=== PATIENT | male | born 1995 | race Caucasian/White ===

== ENCOUNTER 2020-08-28 13:37 | Emergency (ER) | payer OTHER ==
[~2020-08-28] VITALS: Ht 170.2 cm; Wt 76.2 kg
--- NOTE | 2020-08-28 13:37 | NUR ---
PT BIB [facility] C/O ABDOMINAL DISTENSION/PAIN X 3 DAYS AND VOMITING BLOOD LAST NIGHT. PT IS AAOX4, NOT IN RESPIRATORY DISTRESS, HOOKED TO [employer], KEPT RESTED AND COMFORTABLE. WILL CONTINUE TO MONITOR.
--- NOTE | 2020-08-28 13:44 | NUR ---
CALLED IN ED WAITING ROOM. NO RESPONSE.
--- NOTE | 2020-08-28 14:27 | NUR ---
SEEN AND EXAMINED BY .
[2020-08-28] MEDS ORDERED: KETOROLAC TROMETHAMINE INJ 30 MG/ML VIAL IV ONE (14:30)
[2020-08-28] MEDS ORDERED: ONDANSETRON HCL/PF 4 MG/2 ML VIAL IVP ONE (14:30)
[2020-08-28] MEDS ORDERED: IV NS 0.9% 1,000 ML BAG IV ONE (14:30)
[2020-08-28] MEDS ORDERED: KETOROLAC TROMETHAMINE 15 MG/ML VIAL ONE (14:31)
[2020-08-28] MEDS ORDERED: ONDANSETRON HCL/PF 4 MG/2 ML VIAL ONE (14:31)
--- NOTE | 2020-08-28 14:40 | NUR ---
IV LINE ESTABLISHED BLOOD DRAWN AND SENT TO LAB.
[2020-08-28 14:46] LABS: BASOPHILS % (AUTO) 0.5 % (0.0-2.0); HEMATOCRIT 42 % (39-51); HEMOGLOBIN 13.8 g/dL (13.5-17.5); LYMPHOCYTES # (AUTO) 1.7 K/uL (0.8-4.8); LYMPHOCYTES % (AUTO) 26.4 % (20.0-44.0); MEAN CORPUSCULAR HGB CONC 33 g/dl (31.0-36.0); MEAN CORPUSCULAR VOLUME 89 fL (80-96); MONOCYTES # (AUTO) 0.6 K/uL (0.1-1.30); MONOCYTES % (AUTO) 8.4 % (2.0-12.0); NEUTROPHILS # (AUTO) 4.2 K/uL (1.8-8.9); NEUTROPHILS % (AUTO) 62.7 % (43.0-81.0); PLATELET COUNT (AUTO) 132 K/uL (150-450); RED BLOOD CELL COUNT(AUTO) 4.76 MIL/uL (4.5-6.0); WHITE BLOOD COUNT (AUTO) 6.6 K/uL (4.3-11.0)
[2020-08-28 14:56] LABS: CALCIUM, SERUM 8.8 mg/dL (8.5-10.1); CREATININE 0.8 mg/dL (0.6-1.3); POTASSIUM 3.6 mmol/L (3.5-5.1)
[2020-08-28 15:03] LABS: ALBUMIN 3.8 g/dL (3.4-5.0); BILIRUBIN,DIRECT 0.1 mg/dL (0.0-0.2); BILIRUBIN,TOTAL 0.3 mg/dL (0.2-1.0); TOTAL PROTEIN, SERUM 7.2 g/dL (6.4-8.2)
[2020-08-28] MEDS ORDERED: IV NS 0.9% 250 ML IV ONE (15:11)
[2020-08-28] MEDS ORDERED: IOHEXOL-300 100 ML VIAL IV ONE (15:11)
[2020-08-28] MEDS ORDERED: MORPHINE SULFATE INJ 4 MG/ML DISP.SYRIN ONE (15:43)
[2020-08-28] MEDS ORDERED: MORPHINE SULFATE INJ 10 MG/ML DISP.SYRIN IV ONE (16:00)
[2020-08-28] MEDS ORDERED: AZIT1PAC9 PO (16:52)
--- NOTE | 2020-08-28 17:15 | NUR ---
IV removed. Catheter intact and site benign. Pressure and 4x4 applied to site. No bleeding noted.Patient discharged to home in stable condition. Written and verbal after care instructions given. Patient verbalizes understanding of instruction.
[2020-08-28 17:16] VITALS: BP 110/55
== END 2020-08-28 17:16 | disposition home or self-care (01) ==
LOC: ER 13:42
DX: R10.84 Generalized abdominal pain (principal); R14.0 Abdominal distension (gaseous); R16.2 Hepatomegaly with splenomegaly, not elsewhere classified; J18.9 Pneumonia, unspecified organism
CPT/HCPCS: 71045; 74177; 80048; 80076; 83690; 85025; 85730; 96361; 96374; 96375; 99285; J1885; J2270; J2405; J7030; J7050; Q9967

== ENCOUNTER 2020-10-14 15:22 | Emergency (ER) | payer OTHER ==
[~2020-10-14] VITALS: Ht 165.1 cm; Wt 72.6 kg
[~2020-10-14 15:22] MED LIST: AZIT1PAC9 PO
--- NOTE | 2020-10-14 15:45 | NUR ---
The patient bibs for c/o sharp abdominal pain right side going to back. Rates pain 10/10. The states feeling bloated. Respiration regular and unlabored. Will continue to monitor the patient.
[2020-10-14] MEDS ORDERED: MORPHINE SULFATE INJ 2 MG/ML DISP.SYRIN IV ONE (16:00)
[2020-10-14] MEDS ORDERED: IV NS 0.9% 1,000 ML BAG IV ONE (16:00)
[2020-10-14] MEDS ORDERED: MORPHINE SULFATE INJ 4 MG/ML DISP.SYRIN ONE (16:00)
[2020-10-14] MEDS ORDERED: ONDANSETRON HCL/PF 4 MG/2 ML VIAL ONE (16:00)
[2020-10-14] MEDS ORDERED: ONDANSETRON HCL/PF 4 MG/2 ML VIAL IV ONE (16:00)
[2020-10-14 16:10] LABS: BASOPHILS # (AUTO) 0.1 K/uL (0.0-0.2); BASOPHILS % (AUTO) 1.6 % (0.0-2.0); EOSINOPHILS % (AUTO) 0.8 % (0.0-6.0); HEMATOCRIT 44 % (39-51); HEMOGLOBIN 14.8 g/dL (13.5-17.5); LYMPHOCYTES # (AUTO) 1.3 K/uL (0.8-4.8); LYMPHOCYTES % (AUTO) 17.1 % (20.0-44.0); MEAN CORPUSCULAR HGB CONC 34 g/dl (31.0-36.0); MEAN CORPUSCULAR VOLUME 88 fL (80-96); MONOCYTES # (AUTO) 0.8 K/uL (0.1-1.30); MONOCYTES % (AUTO) 10.3 % (2.0-12.0); NEUTROPHILS # (AUTO) 5.3 K/uL (1.8-8.9); NEUTROPHILS % (AUTO) 70.2 % (43.0-81.0); PLATELET COUNT (AUTO) 151 K/uL (150-450); RED BLOOD CELL COUNT(AUTO) 5.06 MIL/uL (4.5-6.0); WHITE BLOOD COUNT (AUTO) 7.6 K/uL (4.3-11.0)
[2020-10-14 16:16] LABS: CALCIUM, SERUM 9.2 mg/dL (8.5-10.1); POTASSIUM 4.2 mmol/L (3.5-5.1)
[2020-10-14 16:25] LABS: ALBUMIN 3.9 g/dL (3.4-5.0); BILIRUBIN,DIRECT 0.2 mg/dL (0.0-0.2); BILIRUBIN,TOTAL 0.7 mg/dL (0.2-1.0); TOTAL PROTEIN, SERUM 7.9 g/dL (6.4-8.2)
--- NOTE | 2020-10-14 17:53 | NUR ---
URINE COLLECTED AND SENT TO THE LAB
[2020-10-14 17:56] VITALS: BP 128/75
--- NOTE | 2020-10-14 17:56 | NUR ---
Patient discharged to home in stable condition. Written and verbal after care instructions given. Patient verbalizes understanding of instruction.
[2020-10-14 18:07] LABS: BILIRUBIN,URINE Negative (NEGATIVE); COLOR,URINE YELLOW (YELLOW); LEUKOCYTE ESTERASE ,URINE Negative (NEGATIVE); NITRITE, URINE Negative (NEGATIVE); PROTEIN,URINE Negative (NEGATIVE); UGLUCOSE Negative (NEGATIVE); UROBILINOGEN,URINE 0.2 EU/dL (0.2)
== END 2020-10-14 17:57 | disposition home or self-care (01) ==
LOC: ER 15:25
DX: R10.84 Generalized abdominal pain (principal); R16.2 Hepatomegaly with splenomegaly, not elsewhere classified; F41.9 Anxiety disorder, unspecified; R11.10 Vomiting, unspecified; F10.10 Alcohol abuse, uncomplicated; F17.200 Nicotine dependence, unspecified, uncomplicated; Y90.9 Presence of alcohol in blood, level not specified; Z79.899 Other long term (current) drug therapy
CPT/HCPCS: 36415; 76700; 80048; 80076; 81003; 83690; 85025; 96361; 96374; 96375; 99284; J2270; J2405; J7030

== ENCOUNTER 2022-05-15 01:02 | Emergency (ER) | payer MEDICAID, OTHER ==
[~2022-05-15] VITALS: Ht 170.2 cm; Wt 65.8 kg
--- NOTE | 2022-05-15 01:13 | NUR ---
PRESENTED TO THE ER FOR C/O L HEAD LACFERATION, L SIDED ABD PAIN AND L KNEE PAIN S/P FALL FROM STAIRS. PT, A, OX4. AMBULATORY WITH STEADY GAITS. WAS SEEN BY MD AND PLACED IN BED 4 , GOWNED UP AND PLACED ON A MONITOR,
--- NOTE | 2022-05-15 01:15 | NUR ---
RAC PIV 20G STABLISHED WITH GOOD BLOOD DRAW
[2022-05-15] MEDS ORDERED: CT SWABBABLE VALVE TRANS SET 1 EA INFUS.SET MC ONE (01:16)
[2022-05-15] MEDS ORDERED: IOHEXOL-300 100 ML VIAL IV ONE (01:16)
[2022-05-15] MEDS ORDERED: IV NS 0.9% 250 ML IV ONE (01:17)
--- NOTE | 2022-05-15 01:25 | NUR ---
PT TO CT VIA CYDNEY
[2022-05-15] MEDS ORDERED: TDAP [DIPH/PERTUSSIS/TET] 0.5 ML VIAL IM ONE ×2 (01:30→02:17)
[2022-05-15] MEDS ORDERED: FENTANYL PF 100MCG/2ML AMPUL ONE (02:34)
--- NOTE | 2022-05-15 02:35 | NUR ---
PT STRONGLY REFUSED THE TDAP. OFFERED SEVERAL TIMES BUT STILL REFUSED. MEDICATION WASTED.
--- NOTE | 2022-05-15 02:38 | NUR ---
MD AT BEDSIDE FOR LACERATION CARE. VITAL SIGN STABLE.
[2022-05-15] MEDS ORDERED: FENTANYL PF 100MCG/2ML AMPUL IV ONE (03:00)
[2022-05-15 03:02] LABS: BASOPHILS % (AUTO) 0.4 % (0.0-2.0); EOSINOPHILS % (AUTO) 0.6 % (0.0-6.0); HEMATOCRIT 41 % (39-51); HEMOGLOBIN 13.3 g/dL (13.5-17.5); LYMPHOCYTES # (AUTO) 0.8 K/uL (0.8-4.8); LYMPHOCYTES % (AUTO) 10.3 % (20.0-44.0); MEAN CORPUSCULAR HGB CONC 33 g/dl (31.0-36.0); MEAN CORPUSCULAR VOLUME 87 fL (80-96); MONOCYTES # (AUTO) 0.5 K/uL (0.1-1.30); MONOCYTES % (AUTO) 6.4 % (2.0-12.0); NEUTROPHILS # (AUTO) 6.2 K/uL (1.8-8.9); NEUTROPHILS % (AUTO) 82.3 % (43.0-81.0); PLATELET COUNT (AUTO) 184 K/uL (150-450); RED BLOOD CELL COUNT(AUTO) 4.65 MIL/uL (4.5-6.0); WHITE BLOOD COUNT (AUTO) 7.5 K/uL (4.3-11.0)
--- NOTE | 2022-05-15 03:04 | NUR ---
CALL BACK FROM [facility] ER. PT ACCEPTED BY DR SNYDER.
--- NOTE | 2022-05-15 03:10 | NUR ---
[facility] CALLED FOR TRANSPORT. ETA 30 MINUTES.
[2022-05-15 03:20] LABS: ALBUMIN 3.6 g/dL (3.4-5.0); BILIRUBIN,DIRECT 0.4 mg/dL (0.0-0.2); BILIRUBIN,TOTAL 0.8 mg/dL (0.2-1.0); CALCIUM, SERUM 9.5 mg/dL (8.5-10.1); CREATININE 0.8 mg/dL (0.6-1.3); POTASSIUM 4.1 mmol/L (3.5-5.1); TOTAL PROTEIN, SERUM 7.5 g/dL (6.4-8.2)
--- NOTE | 2022-05-15 03:42 | NUR ---
Patient transferred to [facility] ER for higher level of care. accompanied by RN, in fair condition. all paper work given to the EMT. will follow them.
[2022-05-15 03:45] VITALS: BP 120/66
== END 2022-05-15 04:47 | disposition short-term general hospital (02) ==
LOC: ER 01:04
DX: S01.01XA Laceration without foreign body of scalp, initial encounter (principal); S36.039A Unspecified laceration of spleen, initial encounter; R10.32 Left lower quadrant pain; M54.2 Cervicalgia; F17.200 Nicotine dependence, unspecified, uncomplicated; Z79.899 Other long term (current) drug therapy; Z20.822 Contact with and (suspected) exposure to COVID-19; W10.9XXA Fall (on) (from) unspecified stairs and steps, initial encounter; Y93.89 Activity, other specified; Y92.89 Other specified places as the place of occurrence of the external cause; Y99.8 Other external cause status
CPT/HCPCS: 99291; 72125; 87426; 12005; 71260; 70450; 74177; 85025; 80048; 80076; 36415; 85730; 86850; 96374; J3010; J7050; Q9967; C9803; 90715